=== PATIENT | female | born 1950 | race Caucasian/White ===

== ENCOUNTER → 2017-11-18 13:11 | Outpatient (CLI) | payer MEDICARE, MEDICAID, SELFPAY ==
--- NOTE | 2017-11-18 | CYSPIN_PTH ---
PATIENT: JUSTINE AMAYA LOC: [facility] U#:[id number] AGE/SX: 74/F ROOM: RE11/18/[address]: Dr. Leeanna Alcala MD : [id number] BED: DIS: SPEC #: [id number] RECD: 11/18/17 07:40 STATUS: TIFFANY SHALINI #: [id number] MARIELENA: 11/18/17 00:[address]: Leeanna Alcala DEPT: CYTOLOGY RECD BY: Constantine Ansari Tissues: Urine Procedures: Pap Stain (control) Special Stain Group II Cytospin Fluid HEADER OPERATION: Not noted PRE-OP DIAGNOSIS: Family history of kidney cancer TISSUE SUBMITTED: Urine for cytology DIAGNOSIS CYTOLOGY Urine for cytology (cytospin): Negative for malignant cells. KAYLA:leticia 11/20/17 CYTOLOGY STUDY Slides are reviewed. The specimen consists of benign squamous cells and urothelial cells. CYTOLOGY GROSS Received is 25 ml of bright yellow fluid labeled with the patient's name and and designated per the requisition as urine. Submitted for cytology preparation. 11/19/17 TC:5 CPT: 91095
[2017-11-18 13:17] LABS: Cytology, Body Fluid / CSF SEE PATHOLOGY REPORT
== END ==
PROVIDERS: Visit Provider Obstetrics & Gynecology
DX: R30.0 Dysuria (principal); Z80.51 Family history of malignant neoplasm of kidney
CPT/HCPCS: 87086; 87088; 88108; 88313

== ENCOUNTER → 2018-01-26 11:54 | Outpatient (CLI) | payer MEDICARE, MEDICAID, SELFPAY ==
[2018-01-28 20:08] LABS: HSV 1 By PCR Negative (Negative)
[2018-01-29 11:33] LABS: HSV 2 By PCR Negative (Negative)
== END ==
PROVIDERS: Visit Provider Obstetrics & Gynecology
DX: L98.8 Other specified disorders of the skin and subcutaneous tissue (principal)
CPT/HCPCS: 36415; 86695; 86696; 87529

== ENCOUNTER → 2019-03-21 16:46 | Outpatient (CLI) | payer MEDICARE, MEDICAID, SELFPAY ==
[2017-11-25 13:46] VITALS: BMI 29.1
[2019-03-28 12:46] LABS: HPV APTIMA, High Risk Negative (Negative)
== END ==
PROVIDERS: Visit Provider Obstetrics & Gynecology
DX: Z12.4 Encounter for screening for malignant neoplasm of cervix (principal)
CPT/HCPCS: 87624; 88175; G0145